=== PATIENT | male | born 1995 | race Caucasian/White ===

== ENCOUNTER → 2019-01-19 | Outpatient (CLI) | payer OTHER ==
--- NOTE | 2019-01-19 14:34 | Diagnostic Imaging Report ---
PROCEDURE: US Scrotum. TECHNIQUE: Multiple real-time grayscale images were obtained over the scrotum in various projections bilaterally. INDICATION: Right testicular mass. FINDINGS: Right testicle measures 4.1 x 2.3 x 2.8 cm and the left testicle measures 3.6 x 1.9 x 2.8 cm. Both testes show homogeneous echotexture. No discrete testicular mass or vascular compromise is identified. Epididymides are unremarkable. There does appear to be a large right hydrocele. IMPRESSION: 1. No evidence of testicular mass or vascular compromise. 2. Large right hydrocele. Dictated by: Dictated on workstation # [id number]
== END ==
LOC: RAD 13:45
PROVIDERS: ATTEND Pediatrics
DX: N50.89 Other specified disorders of the male genital organs (principal); N43.3 Hydrocele, unspecified
CPT/HCPCS: 76870

== ENCOUNTER 2022-11-27 05:29 | Outpatient (CLI) | payer BC ==
[~2022-11-27] VITALS: Ht 170.2 cm; Wt 70.5 kg
[2022-11-28] MEDS ORDERED: ONDA4TAB11 SL (13:23)
[2022-11-28] MEDS ORDERED: ZINC30TA2 PO (13:23)
[2022-11-28] MEDS ORDERED: ASCO500C17 PO (13:23)
[2022-11-28] MEDS ORDERED: MAGN100T5 PO (13:23)
[2022-11-28] MEDS ORDERED: RIZA10TA37 PO (13:23)
== END 2022-11-28 13:37 | disposition home or self-care (01) ==
LOC: PREOP 05:29
PROVIDERS: ATTEND Otolaryngology Otolaryngology/Facial Plastic Surgery
DX: Z01.818 Encounter for other preprocedural examination (principal)

== ENCOUNTER 2022-12-05 06:37 | Day surgery (SDC) | payer BC ==
[~2022-12-05] VITALS: Ht 170.2 cm; Wt 70.5 kg
[2022-12-05] VITALS (10 sets, daily range): BP systolic 111–135; BP diastolic 66–98
[~2022-12-05 06:37] MED LIST: ASCO500C17 PO; MAGN100T5 PO; ONDA4TAB11 SL; RIZA10TA37 PO; ZINC30TA2 PO
[2022-12-05] MEDS: LACTATED RINGERS 1,000 ML 1,000 ML IV PRN ×2 (07:11→09:20)
[2022-12-05 07:26] LABS: BASOPHILS # (AUTO) 0.1 10^3/uL (0.0-0.1); BASOPHILS % (AUTO) 1 % (0-10); EOSINOPHILS # (AUTO) 0.2 10^3/uL (0.0-0.3); EOSINOPHILS % (AUTO) 2 % (0-10); HEMATOCRIT 45 % (40-54); HEMOGLOBIN 14.7 g/dL (13.3-17.7); LYMPHOCYTES # (AUTO) 2.7 10^3/uL (1.0-4.0); LYMPHOCYTES % (AUTO) 34 % (12-44); MEAN CORPUSCULAR HEMOGLOBIN 31 pg (25-34); MEAN CORPUSCULAR HGB CONC 33 g/dL (32-36); MEAN CORPUSCULAR VOLUME 93 fL (80-99); MEAN PLATELET VOLUME 10.7 fL (9.0-12.2); MONOCYTES # (AUTO) 0.8 10^3/uL (0.0-1.0); MONOCYTES % (AUTO) 10 % (0-12); NEUTROPHILS # (AUTO) 4.3 10^3/uL (1.8-7.8); NEUTROPHILS % (AUTO) 54 % (42-75); PLATELET COUNT 248 10^3/uL (130-400)
[2022-12-05] MEDS ORDERED: fentaNYL INJECTION 100 MCG/2 ML VIAL ONE (08:02)
[2022-12-05] MEDS ORDERED: ONDANSETRON INJECTION 4 MG/2 ML (SDV) ONE (08:02)
[2022-12-05] MEDS ORDERED: proPOfol INJECTION 200 MG/20 ML VIAL IV ONE (08:02)
[2022-12-05] MEDS ORDERED: SEVOFLURANE (ULTANE) 15 ML INHAL SOLN ONE ×2 (08:02→08:40)
[2022-12-05] MEDS ORDERED: LIDOCAINE PF 2% 5 ML VIAL ONE (08:02)
[2022-12-05] MEDS ORDERED: MIDAZOLAM INJ 2 MG/2 ML VIAL ONE (08:02)
--- NOTE | 2022-12-05 08:21 | Progress Note-Pre Operative ---
Pre-Operative Progress Note Date of Available H&P: Dec 05, 2022 Date H&P Reviewed: Dec 05, 2022 Time H&P Reviewed: 06:30 History & Physical: H&P Reviewed, Patient Examed, No changes noted Changes from last HP none Pre-Operative Diagnosis: Rec Tons DEVAUGHN HILTON MD Dec 05, 2022 08:21
--- NOTE | 2022-12-05 08:21 | Progress Note-Post Operative ---
Post-Operative Progess Note Surgeon (s)/Facilities Custodian (s) Surgeon DEVAUGHN HILTON MD Facilities Custodian n/a Pre-Operative Diagnosis Rec Tons Post-Operative Diagnosis same Post-Op Procedure Note Date of Procedure: Dec 05, 2022 Name of Procedure Performed: Tonsillectomy Description & Findings Description and Findings: n/a Anesthesia Type get Estimated Blood Loss minimal Packing none. Specimen(s) collected/removed tonsils DEVAUGHN HILTON MD Dec 05, 2022 08:21
[2022-12-05] MEDS ORDERED: ACETAMINOPHEN 325 MG/10.15 ML ORAL SOLN UDC PO PRN (08:30)
[2022-12-05] MEDS ORDERED: oxyCODONE 5 MG/5 ML ORAL SOLN 5 ML UDC PO PRN (08:30)
[2022-12-05] MEDS ORDERED: NS IV 1000 ML 1,000 ML IV SCH (08:30)
[2022-12-05] MEDS ORDERED: dexAMETHasone INJ 10 MG/ML 1 ML VIAL ONE ×2 (08:32→08:40)
--- NOTE | 2022-12-05 08:50 | Anesthesia-General Post-Op ---
General Patient Condition Mental Status/LOC: Same as Preop Cardiovascular: Satisfactory Nausea/Vomiting: Absent Respiratory: Satisfactory Pain: Controlled Complications: Absent Post Op Complications Complications None Follow Up Care/Instructions Patient Instructions None needed. Anesthesia/Patient Condition Patient Condition Patient is doing well, no complaints, stable vital signs, no apparent adverse anesthesia problems. No complications reported per nursing. BANDAR GODINEZ CRNA Dec 05, 2022 08:50
[2022-12-05] MEDS ORDERED: morphine INJ 10 MG/ML 1ML (SYR OR VIAL) IVP STA (09:47)
[2022-12-05] MEDS ORDERED: morphine INJ 10 MG/ML 1ML (SYR OR VIAL) ONE (09:49)
== END 2022-12-05 11:55 | disposition home or self-care (01) ==
LOC: SDC 06:37
PROVIDERS: ATTEND Otolaryngology Otolaryngology/Facial Plastic Surgery
DX: J35.01 Chronic tonsillitis (principal); J35.8 Other chronic diseases of tonsils and adenoids; J03.90 Acute tonsillitis, unspecified
CPT/HCPCS: 36415; 85025; 87081